=== PATIENT | female | born 1930 | race Caucasian/White ===

== ENCOUNTER 2018-02-27 10:28 | Emergency (ER) | payer OTHER, MEDICARE ==
[~2018-02-27] VITALS: Ht 160 cm; Wt 58.1 kg
[2018-02-27 10:52] VITALS: BP 130/81
--- NOTE | 2018-02-27 11:46 | RADIOLOGY REPORT ---
EXAMINATION: XR HAND, LEFT CLINICAL INFORMATION: Injury to right hand status post fall. COMPARISON: None TECHNIQUE: PA, lateral, and oblique views of the left hand. FINDINGS: No fracture, malalignment or other acute abnormality is seen. Severe changes of osteoarthritis are present. Severe degenerative changes are seen in the proximal and distal interphalangeal joints of each digit. Prominent degenerative changes are present along the radial aspect of the wrist. IMPRESSION: Severe osteoarthritis. No acute abnormality.
--- NOTE | 2018-02-27 11:47 | RADIOLOGY REPORT ---
EXAMINATION: XR FOOT, LEFT CLINICAL INFORMATION: Foot pain, great toe, bruising. COMPARISON: None TECHNIQUE: 3 views of the left foot. FINDINGS: Bones have normal alignment. Enthesophyte formation of the calcaneus and base of the fifth metatarsal. Moderate osteoarthrosis of the great toe metatarsophalangeal joint. Comminuted, intra-articular fracture of the proximal phalanx of the great toe with bone fragments remaining in near-anatomic position. The fracture involves the proximal epiphysis and proximal metadiaphysis of the phalanx. Findings include an oblique fracture line that extends to the phalangeal articular surface at the MTP joint. The metatarsal is intact. Soft tissues are swollen around the fractured great toe. IMPRESSION: Comminuted fracture with intra-articular extension of the proximal phalanx of the great toe. Bone fragments remain in near-anatomic position.
--- NOTE | 2018-02-27 11:58 | ED ANKLE/FOOT INJURY COMPLAINT ---
History of Present Illness General Chief Complaint: Fall Stated Complaint: MECHANICAL FALL YESTERDAY, I THINK I BROKE MY TOE Source: patient Exam Limitations: no limitations Vital Signs & Intake/Output Vital Signs & Intake/Output Vital Signs Date Time Temp Pulse Resp B/P B/P Pulse O2 O2 Flow FiO2 Mean Ox Delivery Rate 02/27 1228 82 18 96 Room Air 02/27 1213 Room Air 02/27 1052 98.3 85 16 130/81 95 Allergies Coded Allergies: No Known Allergies (01/16/17) Triage Note: PT TO THE ER C/O LEFT FOOT PAIN.. PT STATES THAT SHE TRIPPED OVER A RUG. PT LEFT TOE IS SWOLLEN AND BLACK/BLUE. 10/10 PAIN PER PT WHEN SHE WALKS.. PT STATES THIS WAS YESTERDAY LATE AFTERNOON. Triage Nurses Notes Reviewed? yes Occurred: just prior to arrival Duration: day(s): Timing: recent history Severity: mild, moderate Pain/Injury Location: Left: Ankle. Method of Injury: fall HPI: 87-year-old female comes into the emergency room for further evaluation of left great toe pain as well as left hand pain. Patient reports that she was in her house yesterday when she slipped and fell. She denies hitting her head. Denies any neck pain. Denies any hip pain or rib pain. She has swelling and pain to her left great toes. Some swelling to her left hand. Some mild pain to her right elbow but does not feel that she broke anything in her elbow and is declining an x-ray of her elbow (Jp Beltran) Past History Travel History Traveled to [place] past 21 day No Medical History Any Pertinent Medical History? see below for history Cardiovascular: AFIB, hypertension, PACE MAKER LCW Blood Disorders: NONE Cancer(s): NONE BOTTLING ROOM WORKER/Reproductive: NONE Surgical History Surgical History: none Psychosocial History What is your primary language Portuguese Tobacco Use: Never used Family History Hx Contributory? No (Jp Beltran) Review of Systems Review of Systems Constitutional: Reports: no symptoms. EENTM: Reports: no symptoms. Respiratory: Reports: no symptoms. Cardiovascular: Reports: no symptoms. GI: Reports: no symptoms. Genitourinary: Reports: no symptoms. Musculoskeletal: Reports: see HPI. Skin: Reports: no symptoms. Neurological/Psychological: Reports: no symptoms. Hematologic/Endocrine: Reports: no symptoms. Immunologic/Allergic: Reports: no symptoms. All Other Systems: Reviewed and Negative (Jp Beltran) Physical Exam Physical Exam General Appearance: well developed/nourished, mild distress Head: atraumatic Eyes: Bilateral: normal appearance. Ears, Nose, Throat: normal ENT inspection, hearing grossly normal Neck: normal inspection Cardiovascular/Respiratory: no respiratory distress Back: normal inspection Leg/Knee/Thigh Left: normal inspection Leg/Knee/Thigh Right: swelling and tenderness left hand 5th metacarpal, PULSES INTACT,, full range of mortion of right elbow, tenderness, no deformity, Foot Left: bone tenderness, limited range of motion, soft tissue tenderness, swelling Neuro/Vascular: normal motor function, normal sensation Psychiatric: awake, alert, oriented x 3 Skin: intact, normal color, warm/dry (Jp Beltran) Progress Differential Diagnosis: fracture, dislocation, sprain, contusion Plan of Care: Orders Procedure Date/time Status Durable Medical Equipment 02/27 1227 Active Diagnostic Imaging: Viewed by Me: Radiology Read. Discussed w/RAD: Radiology Read. Radiology Impression: PATIENT: TEJAS OHARA PRESENT AGE: 87 PATIENT ACCOUNT NO: [id number] : [birth year] LOCATION: [facility] ORDERING PHYSICIAN: Jp BORGES SERVICE DATE: 02/27/18 EXAM TYPE: RAD - XRY-FOOT COMPLETE, LEFT EXAMINATION: XR FOOT, LEFT CLINICAL INFORMATION: Foot pain, great toe, bruising. COMPARISON: None TECHNIQUE: 3 views of the left foot. FINDINGS: Bones have normal alignment. Enthesophyte formation of the calcaneus and base of the fifth metatarsal. Moderate osteoarthrosis of the great toe metatarsophalangeal joint. Comminuted, intra-articular fracture of the proximal phalanx of the great toe with bone fragments remaining in near-anatomic position. The fracture involves the proximal epiphysis and proximal metadiaphysis of the phalanx. Findings include an oblique fracture line that extends to the phalangeal articular surface at the MTP joint. The metatarsal is intact. Soft tissues are swollen around the fractured great toe. IMPRESSION: Comminuted fracture with intra-articular extension of the proximal phalanx of the great toe. Bone fragments remain in near-anatomic position. DICTATED BY: Andrey Ponce MD DATE/TIME DICTATED:02/27/181139 KEYBOARDING CLERK:ELBA DATE/TIME TRANSCRIBED:02/27/181139 CONFIDENTIAL, DO NOT COPY WITHOUT APPROPRIATE AUTHORIZATION. <Electronically signed in Other Vendor System> SIGNED BY: Andrey Ponce MD 02/27/181146, PATIENT: TEJAS OHARA PRESENT AGE: 87 PATIENT ACCOUNT NO: [id number] : [birth year] LOCATION: ER ORDERING PHYSICIAN: Jp BORGES SERVICE DATE: 02/27/181056 EXAM TYPE: RAD - XRY-HAND, LEFT EXAMINATION: XR HAND, LEFT CLINICAL INFORMATION: Injury to right hand status post fall. COMPARISON: None TECHNIQUE: PA, lateral, and oblique views of the left hand. FINDINGS: No fracture, malalignment or other acute abnormality is seen. Severe changes of osteoarthritis are present. Severe degenerative changes are seen in the proximal and distal interphalangeal joints of each digit. Prominent degenerative changes are present along the radial aspect of the wrist. IMPRESSION: Severe osteoarthritis. No acute abnormality. DICTATED BY: Ruperto Horowitz MD DATE/ TIME DICTATED:02/27/181140 KEYBOARDING CLERK:ELBA DATE/TIME TRANSCRIBED: 02/27/181140 CONFIDENTIAL, DO NOT COPY WITHOUT APPROPRIATE AUTHORIZATION. < Electronically signed in Other Vendor System> SIGNED BY: Ruperto Horowitz MD 02/27/181145 (Jp Beltran) Departure Departure Disposition: HOME OR SELF CARE Condition: Stable Clinical Impression Primary Impression: Fracture of left great toe Referrals: Honey BAIG,Pavan King MD (PCP/Family) Additional Instructions: Take Tylenol as needed for pain. Follow-up with ramp service employee. Return if any concerns worsening symptoms. Please go over all results of today's visit with your primary care doctor. Contact your primary care doctor to let them know you were here in the emergency room. There may be nonspecific findings which may not be related to your visit today here in the emergency room but may require further evaluation and chronic monitoring by your primary care doctor. If you had a laceration today the chance of foreign body always remains. You should follow-up with your primary care doctor for recheck in 3-5 days for a wound check. If you had an x-ray done there is a chance that a fracture could have been missed on initial read and you should follow-up with your primary care doctor for repeat x-rays if symptoms persist. If your blood pressure was elevated here in the emergency room please have rechecked by hyour primary care doctor within the next 48. If you were prescribed a narcotic here in the emergency room or any type of controlled substances you're not allowed to drive while taking this medication or operate any type of heavy machinery. Narcotics can make you feel lightheaded dizziness nausea and can cause constipation. You may need to orange picking supervisor a stool softener. Thank you for choosing [facility] emergency room. Please return to the emergency room immediately if you have any other concerns worsening of symptoms. Departure Forms: Customer Survey General Discharge Information Comments 02/27/18 Patient was put in a pneumatic boot and referred to orthopedic doctor. Return if any other concerns worsening symptoms. Clinically looks well. Nontoxic appearing. (Jp Beltran) PA/CLEANER ASSISTANT Co-Sign Statement Statement: ED Attending supervision documentation- [] I saw and evaluated the patient. I have also reviewed all the pertinent lab results and diagnostic results. I agree with the findings and the plan of care as documented in the PA's/CLEANER ASSISTANT's documentation. [X] I have reviewed the ED Record and agree with the PA's/CLEANER ASSISTANT's documentation. [] Additions or exceptions (if any) to the PAs/CLEANER ASSISTANT's note and plan are summarized below: [] (Esthela SHERMAN,Marshal Gupta) Procedures Splinting Location: left foot Pre-Made Type: pneumatic boot Splint Applied By: splint applied by me Pre-Proc Neuro Vasc Exam: normal Post-Proc Neuro Vasc Exam: normal (Jp Beltran)
== END 2018-02-27 12:30 ==
LOC: ERH 10:28
DX: S92.412A Displaced fracture of proximal phalanx of left great toe, initial encounter for closed fracture (principal); M79.642 Pain in left hand; M25.521 Pain in right elbow; W01.0XXA Fall on same level from slipping, tripping and stumbling without subsequent striking against object, initial encounter; Y93.9 Activity, unspecified; Y92.009 Unspecified place in unspecified non-institutional (private) residence as the place of occurrence of the external cause
CPT/HCPCS: 73130-LT; 73630-LT